=== PATIENT | male | born 1950 | race Caucasian/White ===

== ENCOUNTER 2017-08-25 09:54 | Inpatient (IN) | payer OTHER ==
[2017-08-25] MEDS ORDERED: Diazepam TAB(*) 5 MG ONE (11:21)
[2017-08-25] MEDS ORDERED: fentaNYL* 50 MCG/ML 2 ML VIAL (100 MCG VIAL) ONE (11:33)
[2017-08-25] MEDS ORDERED: Heparin 2 UNITS/ML IVPREMIX* 3,000 ML IV ONE (11:34)
[2017-08-25] MEDS ORDERED: Lidocaine 1% INJ* 10 MG/ML 30 ML SDV ONE (11:34)
[2017-08-25] MEDS ORDERED: Iohexol 350 (CONTRAST) 200 ML MDV IV ONE ×3 (11:34→13:27)
[2017-08-25] MEDS ORDERED: Midazolam* 1 MG/ML 5 ML VIAL (5 MG) ONE (11:34)
[2017-08-25] MEDS ORDERED: Heparin 2 UNITS/ML IVPREMIX* 1,000 ML IV ONE (12:23)
[2017-08-25] MEDS ORDERED: Ticagrelor* 90 MG TAB PO ONE (12:35)
[2017-08-25] MEDS ORDERED: Heparin(*) 1000 UNIT/ML 10 ML VIAL CATH LAB IV ONE (12:39)
[2017-08-25] MEDS ORDERED: nitroGLYCERIN DRIP* 250 ML ONE (13:05)
[2017-08-25] MEDS ORDERED: Eptifibatide IV (Load dose)(*) 2 MG/ML 10 ml VIAL ONE ×2 (13:11→13:15)
[2017-08-25] MEDS ORDERED: Eptifibatide (*) 0 ML ONE (13:11)
[2017-08-25] MEDS ORDERED: Nitroglycerin TAB 0.4 MG* 0.4 MG TAB SL PRN (13:44)
[2017-08-25] MEDS ORDERED: NS 0.9% 1000 ML* 1,000 ML IV SCH (13:45)
[2017-08-25] MEDS ORDERED: Acetaminophen TAB* 325 MG PO PRN (13:48)
[2017-08-25] MEDS ORDERED: Ondansetron INJ* 2 MG/ML VIAL IV PRN (13:48)
[2017-08-25] MEDS ORDERED: Zolpidem TAB* 5 MG PO PRN (13:48)
[2017-08-25] MEDS ORDERED: Docusate CAP* 100 MG PO PRN (13:48)
[2017-08-25] MEDS ORDERED: fentaNYL* 50 MCG/ML 2 ML VIAL (100 MCG VIAL) IV PRN (13:48)
[2017-08-25] MEDS ORDERED: oxyCODONE/Acetamin 5/325 MG* TAB PO PRN (13:48)
[2017-08-25] MEDS ORDERED: Omeprazole CAP* 20 MG PO PRN (13:56)
[2017-08-25] MEDS ORDERED: Norepinephrine 16MCG/ML IVPRE* 4,000 MCG/250 ML BAG IV ONE (14:13)
[2017-08-25 14:43] LABS: Hematocrit 35 % (42-52); Mean Corpuscular HGB Conc 35 g/dl (31-36); Mean Corpuscular Hemoglobin 32 pg (27-31); Mean Corpuscular Volume 92 fL (80-94); Mean Platelet Volume 8 um3 (7.4-10.4); Red Blood Count 3.76 10^6/ul (4.0-5.4); Red Cell Distribution Width 14 % (10.5-15); White Blood Count 7.4 10^3/ul (3.5-10.8)
--- NOTE | 2017-08-25 14:46 | RAD ---
CLINICAL HISTORY: Abdominal tenderness COMPARISON: None TECHNIQUE: Multiple contiguous axial CT scans were obtained of the abdomen and pelvis, without intravenous contrast enhancement. Coronal and sagittal multiplanar reformations are submitted for review. The study was performed after cardiac catheterization. FINDINGS: The study is limited by the lack of intravenous contrast. This limits evaluation of the solid organs and vasculature. LUNG BASES: The lung bases are clear. LIVER: The liver is normal in shape, size, contour, and attenuation. BILE DUCTS: There is no intrahepatic or extrahepatic biliary dilatation. GALLBLADDER: The gallbladder is normal, without pericholecystic inflammatory change. PANCREAS: The pancreas is normal, without mass or ductal dilatation. SPLEEN: Normal in size and appearance. UPPER GI TRACT: Evaluation of the gastrointestinal tract is limited by incomplete gastric distention. The upper GI tract is unremarkable. SMALL BOWEL AND MESENTERY: The small bowel is normal in contour, course, and caliber. There is no obstruction or dilatation. COLON: There are multiple diverticula of the sigmoid colon. There is no pericolonic inflammatory change. ADRENALS: Normal bilaterally. KIDNEYS: There is horizontal deviation of the axis of the right kidney. Contrast noted within the renal collecting systems bilaterally. BLADDER: Contrast is noted within the bladder. PELVIC ORGANS: The prostate gland is normal. The seminal vesicles are symmetric. AORTA: There is calcific atherosclerotic disease of the abdominal aorta and its branches, without aneurysmal dilatation IVC: Unremarkable LYMPH NODES: There is no lymphadenopathy by size criteria. ABDOMINAL WALL: There is no evidence for abdominal wall hernia. BONES AND SOFT TISSUES: Degenerative changes are noted of the spine OTHER: There is a large retroperitoneal hematoma measuring approximately 14.1 x 4.8 cm in maximum transverse dimension and 21 cm in clinical dimension. This extends to the level of the right external iliac artery and common femoral artery. IMPRESSION: LARGE RETROPERITONEAL HEMATOMA. THIS FINDING WAS DISCUSSED WITH THE CHARGE NURSE IN THE CARDIAC CATHETERIZATION LAB AT APPROXIMATELY 2:41 PM AUGUST 25, 2017
[2017-08-25] MEDS ORDERED: Lidocaine 2% JELLY* 6 ML JELLY TOPICAL ONE (15:00)
[2017-08-25] MEDS ORDERED: Atropine SYRINGE* 0.1 MG/ML 10 ML SYRINGE (1 MG) ONE (15:21)
[2017-08-25 16:00] LABS: Troponin I 0.01 ng/mL (<0.04)
--- NOTE | 2017-08-25 16:24 | CONSULT ---
Consult Consult: Date of Service: 08/25/17 Reason for Consultation: Retroperitoneal hematoma status post right common femoral arteriotomy and coronary angiography Focused HPI: 67 year old man with CT proven right RPH after right CF arteriotomy. Patient is status post RCA stenting which required heavy anticoagulation including therapeutic Heparin, Brilinta and Integrilin. His arteriotomy was closed with a Minx closure device. The patient had nausea and emesis post sheath removal and then reported right groin and abdominal pain and became hypertensive. CT shows large acute RPH. Currently he has stabilized his blood pressure with Levophed 3 mcg/hr and IVF. PE: Selected Entries 08/25/17 08/25/17 08/25/17 15:55 15:57 16:00 Pulse Rate 63 59 Heart Rate 59 62 Respiratory 21 15 Rate Blood Pressure 130/103 100/82 (mmHg) Blood Pressure 109 86 Mean O2 Sat by Pulse 100 100 Oximetry Mild distress, AAO x 3 Subjectively cold with chills RRR, CTAB Mild tenderness to palpation over the RLQ and right groin 2+ pulses palpated over Right RESIDENT[employer] MORTGAGE UNDERWRITER, pop and DPA Groin is soft Objective Data: Laboratory Tests 08/25/17 14:10 Hgb 12.0 L Hct [address] Tadeo was present for bedside VL duplex ultrasound of the right groin. Patent flow documented in right RESIDENT[employer] MORTGAGE UNDERWRITER. Hematoma visible adjacent to distal REIA. No active extravasation was seen. No evidence of AVF. Patient Name: OLESYA SANTOS Medical Record#: [id number] Ordering Physician: Cullen Khan MD Acct.#: [id number] : 1950 Age: 67 Sex: M Location: CARDIAC CATHETERIZATION LAB Exam Date: 08/25/17 1410 ADM Status: REG REF Order Information: CT ABD/PEL W/O Accession Number: [id number] CPT: 65452 CLINICAL HISTORY: Abdominal tenderness COMPARISON: None TECHNIQUE: Multiple contiguous axial CT scans were obtained of the abdomen and pelvis, without intravenous contrast enhancement. Coronal and sagittal multiplanar reformations are submitted for review. The study was performed after cardiac catheterization. FINDINGS: The study is limited by the lack of intravenous contrast. This limits evaluation of the solid organs and vasculature. LUNG BASES: The lung bases are clear. LIVER: The liver is normal in shape, size, contour, and attenuation. BILE DUCTS: There is no intrahepatic or extrahepatic biliary dilatation. GALLBLADDER: The gallbladder is normal, without pericholecystic inflammatory change. PANCREAS: The pancreas is normal, without mass or ductal dilatation. SPLEEN: Normal in size and appearance. UPPER GI TRACT: Evaluation of the gastrointestinal tract is limited by incomplete gastric distention. The upper GI tract is unremarkable. SMALL BOWEL AND MESENTERY: The small bowel is normal in contour, course, and caliber. There is no obstruction or dilatation. COLON: There are multiple diverticula of the sigmoid colon. There is no pericolonic inflammatory change. ADRENALS: Normal bilaterally. KIDNEYS: There is horizontal deviation of the axis of the right kidney. Contrast noted within the renal collecting systems bilaterally. BLADDER: Contrast is noted within the bladder. PELVIC ORGANS: The prostate gland is normal. The seminal vesicles are symmetric. AORTA: There is calcific atherosclerotic disease of the abdominal aorta and its branches, without aneurysmal dilatation IVC: Unremarkable LYMPH NODES: There is no lymphadenopathy by size criteria. ABDOMINAL WALL: There is no evidence for abdominal wall hernia. BONES AND SOFT TISSUES: Degenerative changes are noted of the spine OTHER: There is a large retroperitoneal hematoma measuring approximately 14.1 x 4.8 cm in maximum transverse dimension and 21 cm in clinical dimension. This extends to the level of the right external iliac artery and common femoral artery. IMPRESSION: LARGE RETROPERITONEAL HEMATOMA. THIS FINDING WAS DISCUSSED WITH THE CHARGE NURSE IN THE CARDIAC CATHETERIZATION LAB AT APPROXIMATELY 2:41 PM AUGUST 25, 2017 Summary: 67 YOM with right RPH status coronary artery catheterization- currently bleeding appears to be not active. Plan/Recommendations: 1. Now that much of the intraoperative anticoagulation is beginning to wear off , the bleeding appears to have stopped. 2. Currently no indication for angiography. 3. Patient to ICU to monitor vitals and clinical symptoms. 4. Recommend serial H&H. 5. If hemodynamics change, clinical symptoms worsen or H&H drops precipitously then either repeat CTA, or if unstable, stat angiography from the left RESIDENT[employer] MORTGAGE UNDERWRITER advised. 1 of 2
[2017-08-25] MEDS ORDERED: PROCHLORPERAZINE INJ 5 MG/ML 2 ML VIAL IV PRN (17:01)
[2017-08-25] MEDS ORDERED: PROCHLORPERAZINE INJ 5 MG/ML 2 ML VIAL ONE (17:03)
--- NOTE | 2017-08-25 17:08 | RAD ---
INDICATION: Large retroperitoneal hematoma status post coronary arteriography from a right common femoral arteriotomy access point COMPARISON: Same day CT of the abdomen and pelvis TECHNIQUE: Guo scale, color Doppler, and spectral analysis utilized to image the proximal right superficial femoral artery, femoral profundus as well as the right common femoral artery and distal portions of the right external iliac artery. Dr. Tadeo was present during image acquisition and personally scanned the right groin in addition to the virtual classroom manager. REPORT: The right common femoral artery as well as the proximal most portions of the right superficial femoral and femoral profundus arteries are adequately patent. Evaluation of the right external iliac artery is partially obscured by overlying mesh. Images of the distal right external iliac artery demonstrate periarterial hematoma formation but no active extravasation is identified. A hypoechogenic structure with shadowing is seen overlying the superior right common femoral artery, presumably the minx closure device. IMPRESSION: No active arterial extravasation is identified in the right groin.
[2017-08-25 18:47] LABS: Hematocrit 39 % (42-52); Hemoglobin 13.3 g/dl (14.0-18.0); Mean Corpuscular HGB Conc 34 g/dl (31-36); Mean Corpuscular Hemoglobin 31 pg (27-31); Mean Corpuscular Volume 92 fL (80-94); Mean Platelet Volume 8 um3 (7.4-10.4); Red Blood Count 4.24 10^6/ul (4.0-5.4); Red Cell Distribution Width 14 % (10.5-15)
[2017-08-25 19:00] LABS: BUN/Creatinine Ratio 21.3 (8-20); Calcium 8.7 mg/dL (8.6-10.3); EGFR African American 110.3 (>60); EGFR Non-African American 85.8 (>60)
[2017-08-25] MEDS ORDERED: PROCHLORPERAZINE INJ 5 MG/ML 2 ML VIAL IV ONE (19:51)
[2017-08-25 20:48] LABS: Hematocrit 39 % (42-52); Mean Corpuscular HGB Conc 34 g/dl (31-36); Mean Corpuscular Hemoglobin 31 pg (27-31); Mean Corpuscular Volume 92 fL (80-94); Mean Platelet Volume 8 um3 (7.4-10.4); Red Blood Count 4.18 10^6/ul (4.0-5.4); Red Cell Distribution Width 14 % (10.5-15); White Blood Count 16.1 10^3/ul (3.5-10.8)
[2017-08-25] MEDS ORDERED: Ticagrelor* 90 MG TAB PO SCH (21:00)
[2017-08-25 21:09] LABS: Troponin I 0.01 ng/mL (<0.04)
[2017-08-25] MEDS: Gemfibrozil TAB* 600 MG PO SCH (22:27)
[2017-08-25] MEDS: Ticagrelor* 90 MG TAB PO SCH (22:27)
[2017-08-26 06:20] LABS: Hematocrit 33 % (42-52); Hemoglobin 11.3 g/dl (14.0-18.0); Mean Corpuscular HGB Conc 34 g/dl (31-36); Mean Corpuscular Hemoglobin 32 pg (27-31); Mean Corpuscular Volume 93 fL (80-94); Mean Platelet Volume 8 um3 (7.4-10.4); Red Blood Count 3.56 10^6/ul (4.0-5.4); Red Cell Distribution Width 14 % (10.5-15); White Blood Count 14.1 10^3/ul (3.5-10.8)
[2017-08-26 06:26] LABS: Comments Flag Yes
[2017-08-26 06:27] LABS: Add Diff/Slide Review? Slide Review Added
[2017-08-26 06:39] LABS: Albumin 3.2 g/dL (3.2-5.2); BUN/Creatinine Ratio 20.9 (8-20); Calcium 8.3 mg/dL (8.6-10.3); EGFR African American 107.5 (>60); EGFR Non-African American 83.6 (>60); HDL Cholesterol 31.4 mg/dL; Potassium 3.9 mmol/L (3.5-5.0); Total Bilirubin 1.2 mg/dL (0.2-1.0); Total Protein 5.2 g/dL (6.4-8.9)
[2017-08-26] MEDS ORDERED: Nitroglycerin 0.2 MG/HR PATCH* (5 MG) TRANSDERM SCH (09:00)
[2017-08-26] MEDS: CMCS: OMEGA-3 FATTY ACIDS (NF) 1,000 MG CAP PO SCH (09:18)
[2017-08-26] MEDS: Aspirin Low Dose CHEW TAB* 81 MG PO SCH (09:18)
[2017-08-26] MEDS: Gemfibrozil TAB* 600 MG PO SCH ×2 (09:18→21:44)
[2017-08-26] MEDS: Metoprolol Succinate XL TAB* 25 MG PO SCH (09:18)
[2017-08-26] MEDS: CMCS: Rosuvastatin (NF) 5 MG TAB PO SCH (09:19)
[2017-08-26] MEDS: Ticagrelor* 90 MG TAB PO SCH ×2 (11:38→21:42)
--- NOTE | 2017-08-26 12:02 | ECHO ---
Patient: OLESYA SANTOS [facility] Rec#: [id number] : 1950 Date: 08/26/2017 Age: 67y Height: 177.8 cm / 70.0 in Weight: 79.83 kg / 175.9 lbs Sex: M BSA: 1.98 Room#: ICU-2 Admit Date#: 08/25/2017 Type: Inpatient Referring: Cullen Khan MD Reading: Cullen Khan MD Liquor Merchant: Donna Abdalla RDCS CC: Fredrick Guerra MD Transthoracic Echocardiogram Indication: S/P PCI, chest pain BP: 100/56 HR: 62 Rhythm: NSR Findings History: S/P AVR, CABG, GERD, s/p RCA stenting 08/25/17, retroperitoneal hematoma. Technical Comments: The study quality is fair. The study is technically limited due to poor apical windows. Completed at 0900. Left Ventricle: The left ventricular chamber size is normal. Mild concentric left ventricular hypertrophy is observed. Global left ventricular wall motion and contractility are within normal limits. The left ventricle appears hyperdynamic. The estimated ejection fraction is greater than 65%. There is no consistent Doppler evidence of clinically significant diastolic dysfunction. The patient was unable to perform a Valsalva maneuver. Left Atrium: The left atrium is mildly dilated. Right Ventricle: The right ventricle is mildly dilated. The right ventricular global systolic function is normal. Right Atrium: The right atrium is slightly dilated. Aortic Valve: The aortic valve structure is not well visualized. There is no evidence of aortic regurgitation. There is no evidence of aortic stenosis. The prosthetic aortic valve leaflets are normal. The bio-prosthetic aortic valve appears to be functioning normally. Mitral Valve: There is mitral annular calcification. The mitral valve leaflets are mildly thickened. There is a trace of mitral regurgitation. There is no evidence of mitral stenosis. Tricuspid Valve: The tricuspid valve leaflets are normal. There is a physiologic tricuspid regurgitation. There is evidence that pulmonary hypertension may be underestimated. There is no tricuspid stenosis. Pulmonic Valve: The pulmonic valve appears normal. There is a trace pulmonic regurgitation. There is no pulmonic stenosis. Pericardium: There is no significant pericardial effusion. Aorta: There is no dilatation of the ascending aorta. The aortic arch is not well visualized. The aortic root is normal in size. Pulmonary Artery: The main pulmonary artery is not well visualized. Venous: The inferior vena cava is dilated. There is a greater than 50% respiratory change in the inferior vena cava dimension. Conclusions The left ventricular chamber size is normal. Mild concentric left ventricular hypertrophy is observed. The left ventricle appears hyperdynamic. The estimated ejection fraction is greater than 65%. The left atrium is mildly dilated. A bio-prosthetic aortic valve is present. The bio-prosthetic aortic valve appears to be functioning normally. There is a physiologic tricuspid regurgitation. There is a trace pulmonic regurgitation. Compared to report of study from 12/23/2014 there are no major changes , LV function seems better. Measurements Name Value Normal Range RVIDd (AP) 2D 3.1 cm (0.9 - 2.6) RVDdMajor (2D) 4.8 cm (2.2 - 4.4) RAd ISD 4CH 6.2 cm (3.4 - 4.9) RA (A4C)W 4 cm (2.9 - 4.6) IVSd (2D) 1.1 cm (0.6 - 1) LVPWd (2D) 1.1 cm (0.6 - 1) LVIDd (2D) 4.1 cm (3.6 - 5.4) LVIDs (2D) 2.7 cm - LV FS (2D) 34 % (25 - 45) Aortic Annulus 1.9 cm (1.4 - 2.6) Ao root diameter (2D) 2.8 cm (2.1 - 3.5) Ascending Ao 2.6 cm (2.1 - 3.4) LA dimension (AP) 2D 3.4 cm (2.3 - 3.8) LAd ISD 4CH 5.7 cm (2.9 - 5.3) LA ISD 4CH W 4.3 cm (2.5 - 4.5) Name Value Normal Range LA ESV SP 4CH (A/L) 73 ml - LA ESV SP 2CH (A/L) 75 ml - LA ESV BP (A/L) 82 ml - LA ESV BP (A/L) index 41.5 ml/m2 - LA ESV SP 4CH (MOD) 66 ml - LA ESV SP 2CH (MOD) 69 ml - Name Value Normal Range MV E-wave Vmax 0.8 m/sec - MV deceleration time 161.1 msec - MV A-wave Vmax 0.58 m/sec - MV E:A ratio 1.36 ratio - LV septal e' Vmax 0.07 m/sec - LV lateral e' Vmax 0.07 m/sec - LV E:e' septal ratio 11.4 ratio - LV E:e' lateral ratio 11.4 ratio - Name Value Normal Range AV Vmax 2.29 m/sec - AV VTI 48 cm - AV peak gradient 20.89 mmHg - AV mean gradient 14.64 mmHg - LVOT diameter 2 cm - LVOT Vmax 0.79 m/sec - LVOT VTI 20.96 cm - LVOT peak gradient 2.49 mmHg - LVOT mean gradient 1.79 mmHg - DOI (VTI) 0.45 ratio - ELIAS (continuity Vmax) 1.1 cm2 - ELIAS (continuity VTI) 1.4 cm2 - Name Value Normal Range TR Vmax 1.5 m/sec - TR peak gradient 9 mmHg - RAP 15 mmHg - RVSP 24 mmHg - IVC diameter 2.2 cm - Name Value Normal Range PV Vmax 0.82 m/sec - PV peak gradient 2.73 mmHg -
[2017-08-26 20:44] LABS: Hematocrit 29 % (42-52); Mean Corpuscular HGB Conc 34 g/dl (31-36); Mean Corpuscular Hemoglobin 32 pg (27-31); Mean Corpuscular Volume 93 fL (80-94); Mean Platelet Volume 8 um3 (7.4-10.4); Red Blood Count 3.16 10^6/ul (4.0-5.4); Red Cell Distribution Width 14 % (10.5-15); White Blood Count 11.9 10^3/ul (3.5-10.8)
[2017-08-26 20:47] LABS: Comments Flag Yes
[2017-08-26 20:49] LABS: Add Diff/Slide Review? Slide Review Added
[2017-08-26] MEDS ORDERED: Nitro Patch/OINT Remove PATCH OFF SCH (21:00)
--- NOTE | 2017-08-27 05:28 | CATH ---
CC: Dr. Cheryl Everett; Dr. Cullen Khan* CARDIAC CATHETERIZATION REPORT: DATE OF PROCEDURE: 08/25/17 PROCEDURES: Cardiac catheterization including coronary angiography, saphenous vein graft angiography. INDICATION FOR PROCEDURE: Coronary artery disease, chest pain. Patient is a 67-year-old gentleman with a history of aortic valve replacement. He also had a single vessel bypass to his right coronary artery at the time of his AVR. Patient had been experiencing episodes of chest pain. At first, they were somewhat atypical chest pain became more exertional chest pain recently. Patient did undergo a stress test at our office, which showed a mild area of ischemia to his inferior wall. Patient was placed on beta-blockers and nitrates for his symptoms. Patient continued to have episodes of exertional chest pain. Cardiac catheterization was recommended. DESCRIPTION OF PROCEDURE: The patient was brought to the cardiac catheterization lab in a fasting state. Informed consent had been obtained prior to the procedure. All labs had been reviewed. The patient was placed supine on the catheterization table. Both femoral areas were cleaned and draped in the usual fashion. 1% lidocaine was used for local anesthesia. The right femoral vein was entered via modified Seldinger technique and a 6-Libyan sheath introducer was placed. The patient underwent coronary angiography using 6-Libyan JL5 catheter and a 6-Libyan AR1 catheter. At the end of the procedure , patient went on to angioplasty and stenting of his right coronary artery by Dr. Khan please see that report. The patient tolerated the procedure well. The patient had a total of 80 cc of Omnipaque dye, a total of 7.3 minutes of fluoro time. FINDINGS: 1. Left main: Left main was normal in size. It trifurcated into the LAD, ramus artery and circumflex artery. The left main itself had a distal 25% stenosis. 2. Left anterior descending artery. The LAD was normal in size. It gave off 2 diagonal vessels. There was minimal disease to the proximal portion of the LAD. The remainder of the LAD was without disease. 3. Ramus artery: The ramus artery was a moderate sized vessel without evidence of stenosis. 4. Left circumflex artery: The left circumflex artery was normal in size and gave off 1 large obtuse marginal branch. There was a 30% stenosis to the mid obtuse marginal branch. The remainder of the vessel and remainder of the left circumflex artery was without disease. 5. Right coronary artery: The right coronary artery was a large dominant vessel giving off the PDA and 2 large posterolateral branches. The right coronary artery itself had moderate calcification along the proximal portion. The distal right coronary had an eccentric 80% stenosis just before the bifurcation of the PDA. The remainder of the PDA and posterolateral branches were without disease. 6. Saphenous vein graft. Saphenous vein graft to the right coronary was occluded at its origin. IMPRESSION: 1. An 80% stenosis to the distal right coronary artery with moderate calcification of the proximal right coronary artery. 2. Mild disease of the obtuse marginal branch of the left circumflex artery and the left anterior descending. RECOMMENDATION: Patient will go on to angioplasty and stenting of his right coronary artery. [id number]/[facility] #: [id number] DARRYL
[2017-08-27] MEDS ORDERED: Ferrous Sulfate TAB* 325 MG PO SCH (08:00)
[2017-08-27 09:02] LABS: Hematocrit 37 % (42-52); Hemoglobin 12.3 g/dl (14.0-18.0); Mean Corpuscular HGB Conc 34 g/dl (31-36); Mean Corpuscular Hemoglobin 31 pg (27-31); Mean Corpuscular Volume 93 fL (80-94); Mean Platelet Volume 8 um3 (7.4-10.4); Red Blood Count 3.94 10^6/ul (4.0-5.4); Red Cell Distribution Width 14 % (10.5-15); White Blood Count 12.2 10^3/ul (3.5-10.8)
[2017-08-27] MEDS: Metoprolol Succinate XL TAB* 25 MG PO SCH (09:17)
[2017-08-27] MEDS: Aspirin Low Dose CHEW TAB* 81 MG PO SCH (09:17)
[2017-08-27] MEDS: Gemfibrozil TAB* 600 MG PO SCH (09:17)
[2017-08-27] MEDS: CMCS: OMEGA-3 FATTY ACIDS (NF) 1,000 MG CAP PO SCH (09:36)
[2017-08-27] MEDS: CMCS: Rosuvastatin (NF) 5 MG TAB PO SCH (09:36)
[2017-08-27] MEDS: Ticagrelor* 90 MG TAB PO SCH (11:47)
[2017-08-27 13:50] VITALS: BP 113/65
--- NOTE | 2017-08-27 23:06 | CATH ---
CC: Dr. Cheryl Everett; Dr. Fredrick Guerra; Dr. Santos Shields* INTERVENTIONAL REPORT: DATE OF PROCEDURE: 08/25/17 INDICATION FOR THE PROCEDURE: Patient with continued ongoing chest discomfort with a history of bypass surgery with vein graft to the right coronary artery and aortic valve replacement for bicuspid aortic valve with abnormal stress test suggesting mild inferior wall ischemia. PROCEDURE: Balloon angioplasty of the mid and distal right coronary artery lesions with placement of overlapping drug-eluting stents with a 3.0 x 12 mm long Synergy stent distally and a 3.5 x 28 mm long Synergy drug-eluting stent in the distal to mid right coronary artery. DESCRIPTION OF PROCEDURE: The patient was already prepped and draped in sterile fashion by Dr. Santos Shields, who had been performed the diagnostic procedure. The decision was made to proceed with attempted intervention into the mid to distal and distal lesions in the right coronary artery. The patient received 180 mg of Brilinta and 6000 units of heparin intravenously. ACT was found to be 291 on one sample and 347 on a second same sample. Guiding views were obtained utilizing a 6- Moldovan AL1 curved guide catheter with side holes. The interventional wire was a regular length BMW wire. The balloon angioplasty was performed utilizing a 2.5 x 12 mm long NC Emerge balloon as well as a 3.0 x 12 mm long NC Emerge balloon. Of note, after balloon angioplasty, the right coronary artery subtotally occluded in its distal portion and significant chest discomfort and ST segment elevation transiently developed. The patient received an initial Integrilin bolus as a bailout followed by a half dose Integrilin bolus 10 minutes later. Stents were then successfully deployed with the reestablishment of WILY 3 flow with no dissection and 0% residual stenosis seen. Following this, an injection was made into the right femoral sheath to assess the eligibility to utilize a closure device. As such, a Mynx 6/7-Moldovan closure device was deployed and the patient was brought to the holding area in a stable condition. FINAL DIAGNOSES: Successful intervention into mid to distal and distal right coronary artery lesions reducing a distal 90% lesion to 0% with WILY 3 flow utilizing a 3.0 x 12 mm long Synergy drug-eluting stent overlapped more proximally reducing an 85% lesion to 0% WILY 3 flow. No dissection seen with placement of a 3.5 x 28 mm long Synergy stent overlapped with high pressure balloon inflations utilizing a 3.5 x 8 mm long NC Emerge balloon more proximally to achieve 3.7 mm and distally utilizing a 3.0 x 8 mm long NC Emerge balloon to achieve 3.2 mm. The patient will be maintained on dual-antiplatelet therapy for minimum of a year's time. Aggressive anti-cholesterol therapy will be pursued and risk factor management through his primary fourth grade teacher, Dr. Cheryl Everett. ADDENDUM: The patient came to the cardiovascular holding area and was retching and developing new onset of acute severe lower right abdominal discomfort. He developed hypotension. Fluid bolus was given. The wound site did not show any evidence of significant hematoma; however, the question of retroperitoneal would bleed was raised. Manual pressure was placed to the area in an attempt to hold to seal off any potential retroperitoneal bleed as the patient was transported down to CAT scan. CAT scan revealed a significant right side retroperitoneal bleed. The patient stabilized with low-dose Levophed and significant fluid bolus. The patient's discomfort became less over time, but was still present and the patient was transported to the intensive care unit to be watched carefully with serial hemoglobin and hematocrit. Dr. Tadeo, interventional radiologist was consulted immediately to consider the possibility of whether or not the patient needed either covered stent or prolonged balloon inflation via the left femoral artery to the right femoral artery area. He performed an ultrasound of the right groin area and found no evidence of ongoing bleed and as such recommended close observation. A sand bag was placed to the groin as well to help maintain pressure for the next 4 hours. [id number]/[facility] #: [id number] MTDD
== END 2017-08-27 14:40 | disposition home or self-care (01) | DRG 247 ==
LOC: CHICATH 09:54 → ICU 16:51 → MEDTELE 08-26 11:00
PROVIDERS: ADMIT Specialist; ATTEND Specialist
PROC: 3E033XZ Introduction of Vasopressor into Peripheral Vein, Percutaneous Approach (ICD-10-PCS; 2017-08-25)
PROC: B2121ZZ Fluoroscopy of Single Coronary Artery Bypass Graft using Low Osmolar Contrast (ICD-10-PCS; 2017-08-25)
PROC: B2111ZZ Fluoroscopy of Multiple Coronary Arteries using Low Osmolar Contrast (ICD-10-PCS; 2017-08-25)
PROC: 027035Z Dilation of Coronary Artery, One Artery with Two Drug-eluting Intraluminal Devices, Percutaneous Approach (ICD-10-PCS; principal; 2017-08-25 11:30)
DX: I25.10 Atherosclerotic heart disease of native coronary artery without angina pectoris (principal); I95.9 Hypotension, unspecified; S36.892A Contusion of other intra-abdominal organs, initial encounter; Y83.8 Other surgical procedures as the cause of abnormal reaction of the patient, or of later complication, without mention of misadventure at the time of the procedure; Y92.239 Unspecified place in hospital as the place of occurrence of the external cause; E78.2 Mixed hyperlipidemia; Z88.8 Allergy status to other drugs, medicaments and biological substances; Z95.1 Presence of aortocoronary bypass graft; Z95.2 Presence of prosthetic heart valve
CPT/HCPCS: 36415; 74176; 80048; 80053; 80061; 82553; 84484; 85025; 85027; 86850; 86900; 86901; 87641; 93005; 93306; 93455; 99156; 99157; A9270-GY; C1725; C1760; C1769; C1876; C1887; J0461; J0780; J1327; J1644; J2001; J2250; J3010